=== PATIENT | female | born 1975 ===

== ENCOUNTER 2017-07-04 15:44 | Emergency (ER) | payer OTHER ==
[2017-07-04 15:51] VITALS: RESP 18; O2SAT 100
--- NOTE | 2017-07-04 16:22 | C.PDOC ---
History Of Present Illness 41 yr old female presents to the ER for evaluation of head injury and right wrist injury sustained [employer], s/p mechanical fall. Patient reports she tripped and fell in front of [facility]. Reports hitting the front to of her head and now c/o mild headache, dizziness , nausea and neck pain. Otherwise, Patient denies LOC, syncope, denies worse headache of life, vision changes, focal deficits, chest pain, SOB, palpitation, dyspnea, abdominal pain, vomiting, back pain, denies obvious deformity/ weakness/ sensory or vascular deficits to B/L UEs and LEs. Ambulatory in ED with stable gait, not in nay apparent distress. - HPI Time Seen by Provider: 07/04/17 16:05 Chief Complaint (Nursing): Trauma History Per: Patient History/Exam Limitations: no limitations Onset/Duration Of Symptoms: Sudden Onset ([employer]) Past Medical History Reviewed: Historical Data, Nursing Documentation, Vital Signs Vital Signs: Last Vital Signs Temp 98.1 F 07/04/17 18:10 Pulse 67 07/04/17 18:10 Resp 18 07/04/17 18:10 BP 134/85 07/04/17 18:10 Pulse Ox 100 07/04/17 20:23 Family History: States: No Known Family Hx - Social History Hx Alcohol Use: No Hx Substance Use: No - Immunization History Hx Tetanus Toxoid Vaccination: No Hx Influenza Vaccination: No Hx Pneumococcal Vaccination: No Review Of Systems Except As Marked, All Systems Reviewed And Found Negative. Eyes: Negative for: Vision Change Cardiovascular: Negative for: Chest Pain Respiratory: Negative for: Shortness of Breath Gastrointestinal: Positive for: Nausea. Negative for: Abdominal Pain Musculoskeletal: Positive for: Other ((+) Right wrist injury). Negative for: Neck Pain, Back Pain Neurological: Positive for: Headache (Mild), Dizziness. Negative for: Weakness , Numbness Physical Exam - Physical Exam Appears: Non-toxic, No Acute Distress Skin: Warm, Dry, No Rash Head: Atraumatic, Normacephalic Eye(s): bilateral: PERRL, EOMI Ear(s): Bilateral: Normal Nose: No Deformity, No Tenderness Oral Mucosa: Moist, No Drooling Tongue: Normal Appearing Lips: Normal Appearing Neck: Normal ROM, Trachea Midline, No Midline Cervical Tenderness, Paracervical Tenderness (mild. No palpable deformity, no skin changes.), No Step Off Deformity, Supple Chest: No Deformity, No Tenderness Cardiovascular: Rhythm Regular, No Murmur Respiratory: No Decreased Breath Sounds, No Accessory Muscle Use, No Rales, No Rhonchi, No Stridor, No Wheezing Gastrointestinal/Abdominal: Soft, No Tenderness, No Guarding, No Rebound Back: No CVA Tenderness, No Vertebral Tenderness, No Paraspinal Tenderness Extremity: Normal ROM (Right wrist, no neurovascular deficits.), Capillary Refill (<2 secs), No Deformity, Other (Tenderness to the dorsal aspect of right wrist with mild edema.) Neurological/Psych: Oriented x3, Normal Speech, Normal Motor, Normal Sensation, Normal Reflexes ED Course And Treatment O2 Sat by Pulse Oximetry: 100 (RA) Pulse Ox Interpretation: Normal - Other Rad X-Ray - Right Wrist X-Ray: Viewed By Me, Read By Radiologist Interpretation: PROCEDURE: Right Wrist Radiographs. HISTORY: injury. COMPARISON: None available. FINDINGS: BONES: Evidence of fracture fragment at the level of the 4th metacarpal with unclear donor site. The remainder the visualized osseous structures appear intact. JOINTS: No dislocation. SOFT TISSUES: Unremarkable. No evidence of radiopaque foreign body. OTHER FINDINGS : None. IMPRESSION: Evidence of fracture fragment at the level of the 4th metacarpal with unclear donor site. Correlate clinically. CT may be considered if indicated. - CT Scan/US CT - Cervical Spine Other Rad Studies (CT/US): Read By Radiologist, Radiology Report Reviewed CT/US Interpretation: EXAM: CT Cervical Spine Without Intravenous Contrast. CLINICAL HISTORY: 41 years old, female; Injury or trauma; Fall; Initial encounter; Concussion /head injury; Additional info: Ijury. TECHNIQUE: Axial computed tomography images of the cervical spine without intravenous contrast. All CT scans. at this facility use one or more dose reduction techniques, viz. : automated exposure control; ma/kV. adjustment per patient size (including targeted exams where dose is matched to indication; i.e. head);. or iterative reconstruction technique. COMPARISON: No relevant prior studies available. FINDINGS: Vertebrae: Straightening of the normal cervical lordosis, as can sometimes be seen in the setting of. muscle spasm versus neck positioning. No evidence of acute displaced cervical fracture. Discs/spinal canal/neural foramina: No acute findings. No spinal canal stenosis. Soft tissues: Unremarkable. Lung apices: Unremarkable as visualized. IMPRESSION: 1. Straightening of the normal cervical lordosis, as can sometimes be seen in the setting of muscle. spasm versus neck positioning. 2. No evidence of acute displaced cervical fracture. CT - Head Other Rad Studies (CT/US): Read By Radiologist, Radiology Report Reviewed CT/US Interpretation: EXAM: CT Head Without Intravenous Contrast. CLINICAL HISTORY: 41 years old, female; Injury or trauma; Fall; Initial encounter; Concussion / head injury. TECHNIQUE: Axial computed tomography images of the head/brain without intravenous contrast. All CT scans at. this facility use one or more dose reduction techniques, viz.: automated exposure control; ma/kV. adjustment per patient size (including targeted exams where dose is matched to indication; i.e. head);. or iterative reconstruction technique. COMPARISON : No relevant prior studies available. FINDINGS: Brain: Unremarkable. No hemorrhage. No significant white matter disease. No edema. Ventricles: Unremarkable. No ventriculomegaly. Bones/joints: Unremarkable. No acute fracture. Soft tissues: Unremarkable. Sinuses: Unremarkable as visualized. No acute sinusitis. Mastoid air cells: Unremarkable as visualized. No mastoid effusion. IMPRESSION: No evidence of acute intracranial pathology. Progress Note: On re-eval, pt is afebrile, hemodynamicaly stable. non-toxic. Ambulatory in ED with stable gait. Head: AT/NC. ENT: no acute findings. neck : Supple, (-) midline tenderness. Lungs: CTA B/L, BS equal B/L. CVS: (+)S1S2, reg. Abd: benign. RUE: exam c/w wrist strain, no defomrity. FAROM, no neurovascular deficits. Neurologicaly intact. Wrist xray review (+)? fx. CT head- no acute findings. CT T-asorm-bujzpse ( delay in [place]). Volar splint applied to Right wrist. Pt refused to wait for C=spine results. Pt advised OBS 48 hrs for any sign of head injury-return to ED immediately. refl. to F/U with PMD, ortho in 2-3 days for re-eval. return to ED if any worsening or new changes. Orthopedic Time Performed: 17:15 Time Out: Side verified, Site verified, Patient ID confirmed Procedure: Splint Type: Volar Location: Right, Wrist Consent obtained: Verbal Performed by: Mid-level Provider Diagnosis: Fracture Type: Closed Location: Right Bone: Metacarpal, 4th Medical Decision Making Medical Decision Making: PLAN: * CT - Cervical Spine, Head * X-Ray - Right Wrist * Tylenol PO * Zofran PO Disposition Counseled Patient/Family Regarding: Studies Performed, Diagnosis, Need For Followup, Rx Given - Disposition Referrals: [facility] [Outside] Disposition: HOME/ ROUTINE Disposition Time: 18:02 Condition: STABLE Additional Instructions: OBSERVE 48 HOURS FOR ANY SIGN OF HEAD INJURY-INTRACTABLE HEADACHE, VOMITING, VISUAL CHANGES, OR ANY OTHER NEW CHANGES-RETURN TO ED IMMEDIATELY FOR RE- EVALUATION. FOLLOW UP WITH PMD AND ORTHOPEDIST IN 2-3 DAYS FOR RE-EVALUATION. RETURN TO ED IF ANY WORSENING OR NEW CHANGES. Prescriptions: traMADol [Ultram] 50 mg PO TID #7 tab Instructions: Wrist Fracture in Adults (ED), Head Injury (ED), Cervical Sprain (ED) Forms: [facility] (Maltese) Print Language: NEPALI - Clinical Impression Clinical Impression: Head injury, Wrist fracture, Cervical strain - PA / VIDEO SYSTEMS ENGINEER / Resident Statement MD/DO has reviewed & agrees with the documentation as recorded. - Scribe Statement The provider has reviewed the documentation as recorded by the Scribe Katherine Loredo All medical record entries made by the Mildredibsamantha were at my direction and personally dictated by me. I have reviewed the chart and agree that the record accurately reflects my personal performance of the history, physical exam, medical decision making, and the department course for this patient. I have also personally directed, reviewed, and agree with the discharge instructions and disposition.
--- NOTE | 2017-07-04 16:51 | RAD ---
PROCEDURE: Right Wrist Radiographs. HISTORY: injury COMPARISON: None available. FINDINGS: BONES: Evidence of fracture fragment at the level of the 4th metacarpal with unclear donor site. The remainder the visualized osseous structures appear intact. JOINTS: No dislocation. SOFT TISSUES: Unremarkable. No evidence of radiopaque foreign body OTHER FINDINGS: None. IMPRESSION: Evidence of fracture fragment at the level of the 4th metacarpal with unclear donor site. Correlate clinically. CT may be considered if indicated.
[2017-07-04 18:11] VITALS: BP 134/85; PULSE 67; TEMP 98.1
--- NOTE | 2017-07-04 19:41 | CT ---
EXAM: CT Head Without Intravenous Contrast EXAM DATE/TIME: 07/04/2017 5:04 PM CLINICAL HISTORY: 41 years old, female; Injury or trauma; Fall; Initial encounter; Concussion / head injury; Without loss of consciousness TECHNIQUE: Axial computed tomography images of the head/brain without intravenous contrast. All CT scans at this facility use one or more dose reduction techniques, viz.: automated exposure control; ma/kV adjustment per patient size (including targeted exams where dose is matched to indication; i.e. head); or iterative reconstruction technique. Coronal and sagittal reformatted images were created and reviewed. COMPARISON: There are no prior studies for comparison. FINDINGS: Brain: Ventricles are normal in size and configuration. There is no midline shift. There are no intra-axial or extra-axial mass lesions or areas of hemorrhage. There are no abnormal fluid collections. Starks-white differentiation is maintained. Ventricles: See above. Bones: Cranial vault is intact. Soft tissues: unremarkable Sinuses: There is no acute sinusitis. Ears and mastoids: Middle ears and mastoids are unremarkable Orbits: Orbital contents are unremarkable. IMPRESSION: No acute intracranial abnormality
--- NOTE | 2017-07-05 09:49 | CT ---
PROCEDURE: CT Cervical Spine without contrast HISTORY: <ijury> COMPARISON: None available. TECHNIQUE: Axial computed tomography images were obtained of the cervical spine without the use of intravenous contrast. Coronal and sagittal reformatted images were created and reviewed. Radiation dose: Total exam DLP = 517.75 mGy-cm. This CT exam was performed using one or more of the following dose reduction techniques: Automated exposure control, adjustment of the mA and/or kV according to patient size, and/or use of iterative reconstruction technique. FINDINGS: VERTEBRAE: Cervical curvature straightened but without fracture or spondylolisthesis appreciated. No destructive bony lesion identified. C1-2 articulation and craniocervical junction appear intact DISCS/SPINAL CANAL/NEURAL FORAMINA: No significant central canal or neural foraminal stenosis. Discs heights are grossly preserved. PARASPINAL SOFT TISSUES: Unremarkable. OTHER FINDINGS: None. IMPRESSION: Straightened cervical spine. No fracture or spondylolisthesis. Further characterization by MRI can provided if clinically warranted. Concordant preliminary report from [facility], 07/04/2017.
== END 2017-07-04 19:47 | disposition home or self-care (01) ==
LOC: C.ER 15:44
DX: S09.90XA Unspecified injury of head, initial encounter (principal); S16.1XXA Strain of muscle, fascia and tendon at neck level, initial encounter; S62.304A Unspecified fracture of fourth metacarpal bone, right hand, initial encounter for closed fracture; W01.0XXA Fall on same level from slipping, tripping and stumbling without subsequent striking against object, initial encounter

== ENCOUNTER 2017-07-06 12:23 | Emergency (ER) | payer OTHER ==
[2017-07-06] MEDS ORDERED: DiphenhydrAMINE 50 mg/ml Inj IVP STA (13:35)
[2017-07-06] MEDS ORDERED: DiphenhydrAMINE 50 mg/ml Inj ONE (14:00)
--- NOTE | 2017-07-06 14:08 | C.PDOC ---
History Of Present Illness 41-year-old female, presents to the emergency department with complaints of headache. Patient states she has been experiencing two-day duration of headache , nausea and non-bloody/non-bilious vomiting. Patient was in ER two days ago after a fall and diagnosed with concussion with negative ct scan of head and neck as well as a metacarpal fx. Denies re-injury, shortness of breath, visual changes. Denies thunderclap association, or worst headache of life. No other complaints at this time. Time Seen by Provider: 07/06/17 13:25 Chief Complaint (Nursing): Headache History Per: Patient History/Exam Limitations: no limitations Onset/Duration Of Symptoms: Days Current Symptoms Are (Timing): Still Present Severity: Moderate Past Medical History Reviewed: Historical Data, Nursing Documentation, Vital Signs Vital Signs: Last Vital Signs Temp 98.1 F 07/06/17 15:54 Pulse 73 07/06/17 15:54 Resp 18 07/06/17 15:54 BP 115/68 07/06/17 15:54 Pulse Ox 97 07/06/17 18:42 Family History: States: No Known Family Hx - Social History Hx Alcohol Use: No Hx Substance Use: No - Immunization History Hx Tetanus Toxoid Vaccination: No Hx Influenza Vaccination: No Hx Pneumococcal Vaccination: No Review Of Systems Constitutional: Negative for: Fever, Chills Eyes: Negative for: Vision Change Gastrointestinal: Positive for: Nausea, Vomiting Musculoskeletal: Negative for: Neck Pain, Back Pain Neurological: Positive for: Headache. Negative for: Weakness, Numbness Physical Exam - Physical Exam Appears: Non-toxic, No Acute Distress Skin: Warm, Dry, No Rash Head: Atraumatic, Normacephalic Eye(s): bilateral: Normal Inspection, PERRL, EOMI Nose: Normal Oral Mucosa: Moist Lips: Normal Appearing Neck: Normal ROM Chest: Symmetrical Cardiovascular: Rhythm Regular, No Murmur Respiratory: Normal Breath Sounds, No Accessory Muscle Use Extremity: Other (right hand in splint) Neurological/Psych: Oriented x3, Normal Speech (no focal deficit), Normal Cognition, Normal Cranial Nerves, No Cerebellar Signs, Normal Motor, Normal Sensation, Normal Reflexes ED Course And Treatment - Laboratory Results Result Diagrams: 07/06/17 14:38 07/06/17 14:21 ECG: Interpreted By Me, Viewed By Me ECG Rhythm: Sinus Rhythm ECG Interpretation: No Acute Changes Rate From EC O2 Sat by Pulse Oximetry: 97 (on RA) Pulse Ox Interpretation: Normal Medical Decision Making Medical Decision Making: Impression 41y/o F comes in w/ concussive syndrome. Plan: * CMP, Trop I * CBC * Meclizine, Benadryl, Reglan, Toradol * UA/HCG * Reassess and Disposition * * Patient states improvement and resolution of symptoms. will discharge home to follow up with pmd in 2 days. Disposition Counseled Patient/Family Regarding: Studies Performed, Diagnosis, Need For Followup, Rx Given - Disposition Referrals: [facility] [Outside] Disposition: HOME/ ROUTINE Disposition Time: 15:25 Condition: IMPROVED Additional Instructions: follow up with your doctor in 2 days call to make an appointment take medication as prescribed return to hospital if symptoms worsens or progress Prescriptions: Meclizine [Meclizine*] 25 mg PO TID PRN #15 tab PRN Reason: Dizziness Naproxen [Naprosyn] 500 mg PO BID PRN #16 tab PRN Reason: Pain, Moderate (4-7) Ondansetron ODT [Zofran ODT] 4 mg PO TID PRN #12 odt PRN Reason: Nausea/Vomiting Instructions: Tension Headache (ED), Concussion (ED), Post Concussion Syndrome (ED), Dizziness (ED) Forms: [facility] (Vietnamese), General Discharge Instructions Print Language: PORTUGUESE - Clinical Impression Clinical Impression: Head injury, Concussion, Dizziness - Scribe Statement The provider has reviewed the documentation as recorded by the Scribe (Benton Bolden) All medical record entries made by the Scribe were at my direction and personally dictated by me. I have reviewed the chart and agree that the record accurately reflects my personal performance of the history, physical exam, medical decision making, and the department course for this patient. I have also personally directed, reviewed, and agree with the discharge instructions and disposition.
[2017-07-06 14:33] LABS: RBC URINE 1 /hpf (0-3); URINE BACTERIA OCC (<OCC); URINE BILIRUBIN NEGATIVE (NEGATIVE); URINE BLOOD NEGATIVE (NEGATIVE); URINE COLOR Yellow (YELLOW); URINE GLUCOSE (UA) NORMAL (Normal); URINE KETONE NEGATIVE (NEGATIVE); URINE LEUKOCYTE ESTERASE NEG Leu/uL (Negative); URINE PROTEIN NEGATIVE (NEGATIVE); URINE UROBILINOGEN NORMAL mg/dL (0.2-1.0)
[2017-07-06 14:40] LABS: BILIRUBIN,TOTAL 1.1 mg/dL (0.2-1.3); CALCIUM 8.2 mg/dl (8.6-10.4); GFR AFRICAN-AMERICAN > 60; GLUCOSE,RANDOM 93 mg/dL (65-105)
[2017-07-06 14:44] LABS: BASO % 0.4 % (0.0-2.0); HEMATOCRIT 26.8 % (34.0-47.0); LYMPH # 1.1 K/uL (1.0-4.3); LYMPH % 15.2 % (20.0-40.0); MEAN CELL VOLUME 76.2 fL (81.0-99.0); MEAN CORPUSCULAR HEMOGLOBIN 24.3 pg (27.0-31.0); MEAN CORPUSCULAR HGB CONC 31.8 g/dL (33.0-37.0); MEAN PLATELET VOLUME 9.9 fL (7.2-11.7); MONO # 0.6 K/uL (0.0-0.8); MONO % 7.8 % (0.0-10.0); NRBC % 0.1 % (0.0-2.0); RED CELL DISTRIBUTION WIDTH 16.7 % (11.5-14.5); WHITE BLOOD COUNT 7.2 K/uL (4.8-10.8)
[2017-07-06 14:51] LABS: ALB/GLOB RATIO 1.2 (1.0-2.1); ALKALINE PHOSPHATASE 63 U/L (38-126); ALT/SGPT 25 U/L (9-52); AST/SGOT 39 U/L (14-36); BLOOD UREA NITROGEN 9 mg/dL (7-17); CARBON DIOXIDE 23 mmol/L (22-30); CHLORIDE 102 mmol/L (98-107); POTASSIUM 4.8 mmol/L (3.6-5.2); SODIUM 133 mmol/L (132-148); TOTAL PROTEIN 7.3 g/dL (6.3-8.3)
[2017-07-06 15:56] VITALS: BP 115/68; PULSE 73; RESP 18; TEMP 98.1
[2017-07-06 18:42] VITALS: O2SAT 97
--- NOTE | 2017-07-07 23:17 | CARD ---
APPROVED REPORT EKG Measurement Heart [id number] <Conclusion> Normal sinus rhythm Normal ECG
== END 2017-07-06 15:58 | disposition home or self-care (01) ==
LOC: C.ER 12:23
DX: S06.0X0D Concussion without loss of consciousness, subsequent encounter (principal); W19.XXXD Unspecified fall, subsequent encounter; R42 Dizziness and giddiness
CPT/HCPCS: 80053; 81001; 82948; 84484; 84703; 85025; 93005; 96374; 96375; 99285; J1200; J1885; J2765